=== PATIENT | female | born 1965 ===

== ENCOUNTER → 2024-01-12 09:49 | Outpatient (REF) | payer OTHER, SELFPAY ==
[2024-01-12 12:03] LABS: % Basophils 0.6 % (0-2); % Eosinophils 7.4 % (0-6); % Immature Granulocytes 0.1 % (0-0.5); % Lymphocytes 49.3 % (20.5-51.1); % Monocytes 6.6 % (1.7-9.3); Absolute Eosinophils 0.5 10^3/uL (0-0.7); Absolute Lymphocytes 3.4 10^3/uL (1.2-3.4); Absolute Monocytes 0.5 10^3/uL (0.1-0.6); Absolute Neutrophils 2.5 10^3/uL (1.4-6.5); Hemoglobin 13.5 g/dL (12.0-16.0); Mean Corp Hgb Conc. 35.5 g/dL (33.0-37.0); Mean Corpuscular Hgb 30.6 pg (27.0-31.0); Mean Corpuscular Volume 86.2 fL (81.0-99.0); Mean Platelet Volume 10.3 fL (7.4-10.4); Nucleated Red Blood Cells % 0 %; Platelet Count 245 10^3/uL (130-400); Red Blood Cell Count 4.41 10^6/uL (4.20-5.40); Red Cell Dist. Width 11.9 % (11.5-14.5); White Blood Cell Count 6.9 10^3/uL (4.8-10.8)
[2024-01-12 12:13] LABS: ALT (SGPT) 43 U/L (0-35); AST (SGOT) 37 U/L (14-36); Albumin 4.3 g/dl (3.5-5.0); Alkaline Phosphatase 104 U/L (38-126); Blood Urea Nitrogen 15 mg/dl (7-17); Calcium 9.4 mg/dl (8.4-10.2); Carbon Dioxide 27 mmol/L (22-30); Chloride 107 mmol/L (98-107); Glucose 110 mg/dl (70-99); HDL Cholesterol 47 mg/dl; LDL Cholesterol, Calculated 171 mg/dl; Potassium 4.4 mmol/L (3.5-5.1); Sodium 137 mmol/L (135-145); Total Bilirubin 0.6 mg/dl (0.2-1.3); Total Cholesterol 263 mg/dl (50-199); Total Protein 7.3 g/dl (6.3-8.2); Triglyceride 227 mg/dl (10-149); Very Low Density Lipoprotein 45 mg/dl (0-30); eGFR > 60.00
== END ==
LOC: HWLAB 09:49
PROVIDERS: ATTENDING PHYSICIAN Student in an Organized Health Care Education/Training Program
DX: Z76.89 Persons encountering health services in other specified circumstances (principal); R39.89 Other symptoms and signs involving the genitourinary system; N95.0 Postmenopausal bleeding
CPT/HCPCS: 36415; 80053; 80061; 85025

== ENCOUNTER 2024-12-20 19:45 | Emergency (ER) | payer BC, OTHER, SELFPAY ==
[2024-12-20 19:48] VITALS: BP 112/84
[2024-12-20] MEDS: TYLENOL 1000 MG PO (19:58)
[2024-12-20 20:19] LABS: % Basophils 0.6 % (0-2); % Eosinophils 0.8 % (0-6); % Immature Granulocytes 0.4 % (0-0.5); % Lymphocytes 25.3 % (20.5-51.1); % Monocytes 13.6 % (1.7-9.3); % Neutrophils 59.3 % (42.2-75.2); Absolute Lymphocytes 1.3 10^3/uL (1.2-3.4); Absolute Monocytes 0.7 10^3/uL (0.1-0.6); Hematocrit 40.8 % (37.0-47.0); Hemoglobin 14.3 g/dL (12.0-16.0); Mean Corpuscular Hgb 29.7 pg (27.0-31.0); Mean Corpuscular Volume 84.6 fL (81.0-99.0); Mean Platelet Volume 9.9 fL (7.4-10.4); Nucleated Red Blood Cells % 0 %; Platelet Count 212 10^3/uL (130-400); Red Blood Cell Count 4.82 10^6/uL (4.20-5.40); Red Cell Dist. Width 11.9 % (11.5-14.5)
[2024-12-20 20:34] LABS: COVID-19 Antigen Negative (Negative)
[2024-12-20 20:35] LABS: Lactic Acid 1.3 mmol/L (0.7-2.0)
[2024-12-20 20:43] LABS: ALT (SGPT) 44 U/L (0-35); AST (SGOT) 43 U/L (14-36); Albumin 5.1 g/dl (3.5-5.0); Alkaline Phosphatase 105 U/L (38-126); Blood Urea Nitrogen 12 mg/dl (7-17); Calcium 9.6 mg/dl (8.4-10.2); Carbon Dioxide 27 mmol/L (22-30); Chloride 96 mmol/L (98-107); Glucose 118 mg/dl (70-99); Potassium 4.4 mmol/L (3.5-5.1); Sodium 133 mmol/L (135-145); Total Bilirubin 0.6 mg/dl (0.2-1.3); eGFR > 60.00
[2024-12-20 22:58] VITALS: BP 99/60
--- NOTE | 2024-12-21 00:49 | ED.GENMED ---
History of Present Illness
General
Chief Complaint: Fever
Time Seen by Provider: 12/21/24 00:20
History of Present Illness
History of Present Illness:
59-year-old female without significant past medical history presenting to the emergency department for 3 days of fever and headache. Patient also notes nonproductive cough. Denies any known sick contacts. She has not had a flu vaccine. Denies
chest pain. Denies abdominal pain or GI symptoms. She has been taking Tylenol with improvement of fever. She denies additional acute medical complaints
Phy Exam
Physical Exam
Physical Exam:
General: Well-appearing, no clinical signs of dehydration, nontoxic and in no acute distress
HEENT: protecting airway
Neck: appears supple
CV: Normal heart rate, regular rhythm
Resp: No accessory muscle use, no increased work of breathing, lungs clear to auscultation bilaterally. Active dry cough
Abd: No distention
Extremities: No deformities, no swelling
Neuro: alert, no focal neurologic deficit
: deferred
Rectal: deferred
Psych: Normal affect
Skin: Intact
Sepsis
Sepsis Screening
Sepsis Assessment: Sepsis Ruled Out
Sepsis Screen
Sepsis Screen: Sepsis Ruled Out
Date: 12/21/24
Time: 02:04
Course
Orders/Labs/Results
Orders:
Orders
12/20/24 19:57
Acetaminophen [Tylenol] 1,000 mg .ROUTE .STK-MED ONE
12/20/24 19:58
Acetaminophen [Tylenol] 1,000 mg PO NOW STA
12/20/24 20:07
COVID-19 Antigen Urgent
Source: Nasal Swab
Complete Blood Count/With Diff Urgent
Comprehensive Metabolic Panel Urgent
Lactic Acid Urgent
Blood Culture Urgent
MYA Source: Blood/Venous
Specimen Description:
Influenza A+B Rapid Molecular Urgent
MYA Source: Nasal Swab
Specimen Description:
Abnormal Lab Results
12/20/24
20:07
Absolute Monos (auto) 0.7 H 10^3/uL
(0.1-0.6)
Monocytes % 13.6 H %
(1.7-9.3)
Sodium 133 L mmol/L
(135-145)
Chloride 96 L mmol/L
(98-107)
Glucose 118 H mg/dl
(70-99)
AST 43 H U/L
(14-36)
ALT 44 H U/L
(0-35)
Albumin 5.1 H g/dl
(3.5-5.0)
12/20/24 20:07
12/20/24 20:07
Vital Signs
Initial and Last Documented VS:
Initial Vital Signs
Temp Pulse Resp BP Pulse Ox
102.8 F H 106 18 112/84 98
12/20/24 19:48 12/20/24 19:48 12/20/24 19:48 12/20/24 19:48 12/20/24 19:48
Last Documented Vital Signs
Temp Pulse Resp BP Pulse Ox
99.1 F 64 20 99/60 100
12/21/24 00:32 12/20/24 22:58 12/20/24 22:58 12/20/24 22:58 12/20/24 22:58
MDM/Problems Addressed
MDM/Problems Addressed:
59-year-old female presenting for fever, cough, headache. Vital signs arrival significant for fever.
On exam, patient is resting comfortably, no acute distress or discomfort. Patient received antipyretics prior to my assessment with now resolution of fever. No acute respiratory distress with benign cardiac and pulmonary exam. Patient also had
screening laboratory analysis and viral swabs prior to my assessment. Patient is positive for the flu, consistent with symptoms. No focal abnormal lung sounds, without concern for superimposed pneumonia. Patient at this time is hemodynamically
stable. Feel stable for discharge with continued outpatient supportive therapy. Did have conversation regarding Tamiflu, risk and benefits. Patient opting out of Tamiflu. Return precautions discussed and patient verbalized understanding
*Critical Care Note
Total Time (30-74mins, 75-104mins- exclusive of procedures): Not Applicable
ED Attending Note
-
Portions of this chart may have been created with voice recognition software.� Occasional wrong word or��sound alike� substitutions may have occurred due to the inherent limitations of voice recognition software.
Discharge Plan
Departure
Patient Disposition: Home (Routine Discharge)
Date of Disposition: 12/21/24
Time of Disposition: 00:55
Patient with high blood pressure during this ER visit?: No
Condition: Good
Discharge Problem:
Influenza A
Instructions: Viral Syndrome (DC), Flu in adults - ED discharge instructions
Prescriptions:
New
ibuprofen 600 mg tablet
600 mg PO Q8H PRN (Reason: fever) 5 Days Qty: 20 0RF
Activity Restrictions/Additional Instructions:
You were seen in the emergency department for headache and fever
You were found to have influenza. Please continue to take Tylenol and Motrin for your control. Drink plenty of fluids.
Please follow-up closely with your primary care physician.
Return to the emergency department for any worsening of your symptoms, or any development of chest pain, difficulty breathing, abdominal pain with persistent vomiting and inability to tolerate food or liquid by mouth (concern for dehydration),
weakness, headache or confusion, fever greater than 100.4, or any additional symptoms that are concerning to you.
Thank you for choosing [facility].
Interventions
Interventions:
*Risk Screen - Suicide Last Done: 12/20/24 19:48
*General Assessment Last Done: 12/20/24 19:48
*Neglect/Abuse Screening Last Done: 12/20/24 19:48
*Nursing Disposition Last Done: 12/21/24 01:05
ED- Neurological Assessment Last Done: 12/21/24 00:35
ED-Skin Assessment Last Done: 12/21/24 00:35
Discharge Date and Time
Discharge Date/Time: 12/21/24 01:28
Print Language: ALBANIAN
== END 2024-12-21 01:28 | disposition home or self-care (01) ==
LOC: EMR 19:45
PROVIDERS: Student in an Organized Health Care Education/Training Program; EMERGENCY PHYSICIAN Student in an Organized Health Care Education/Training Program; FAMILY PHYSICIAN Family Medicine
DX: J10.1 Influenza due to other identified influenza virus with other respiratory manifestations (principal)
CPT/HCPCS: 99283; 80053; 83605; 85025; 87040; 87502; 87811